=== PATIENT | female | born 1935 | race Caucasian/White ===

== ENCOUNTER → 2017-08-05 | Outpatient (CLI) | payer MEDICARE, BC ==
[~2017-08-05] MED LIST: ASPIRIN 325MG325 MG PO; BAYER GENUINE325 MG PO; BISOPROLOL 5MG T5 MG PO; CALCIUM + D 6001 TAB PO; COREG 6.25MG6.25 MG PO; DIOVAN160 MG PO; DIOVAN80 MG PO; ISOSORBIDE MONO30 MG PO; LIPITOR10 MG PO; METFORMIN 500M500 M1 PO; METFORMIN500 MG PO; METOPROLOL25 MG PO; MIRAPEX 0.120.125 MG PO; NEXIUM 24HR20 M1 PO; NITROGLYCE0.4 MG/SPR SL; PAXIL20 MG PO; PRAVACHOL 40MG40 MG PO; PRILOSEC OTC20 MG PO; PRILOSEC40 MG PO; ROSUVASTATIN CA40 MG PO; SPIRONOLACTONE25 MG NG
--- NOTE | 2017-08-05 15:46 | CARDIOVASCULAR REPORT ---
"Cerebrovascular Exam Indications: 785.9 Bruit. IMPRESSIONS 1. The bilateral vertebral arteries are patent with normal antegrade flow. 2. Study suggests 50-69% stenosis involving the right internal carotid artery and the left internal carotid artery. Carotid duplex study. Complete study and Doppler flow study including spectral analysis, color and gutierrez scale imaging. Height: Height: 162.6cm. Height: 64in. Weight: Weight: 75.8kg. Weight: 166.7lb. Body mass index: BMI: 28.7kg/m^2. Body surface area: BSA: 1.87m^2. Location: Vascular laboratory. Patient status: Outpatient. Tables: Arterial flow: + +--------+--------+ |Location |V sys |V ed | + +--------+--------+ |Right CCA - proximal|85.6cm/s|17.3cm/s| + +--------+--------+ |Right CCA - distal |71.1cm/s|16cm/s | + +--------+--------+ |Right ECA |341cm/s |--------| + +--------+--------+ |Right ICA - proximal|204cm/s |59.4cm/s| + +--------+--------+ |Right ICA - mid |161cm/s |49cm/s | + +--------+--------+ |Right ICA - distal |140cm/s |45.2cm/s| + +--------+--------+ |Right vertebral |72.2cm/s|--------| + +--------+--------+ |Left CCA - proximal |112cm/s |22cm/s | + +--------+--------+ |Left CCA - distal |108cm/s |22.8cm/s| + +--------+--------+ |Left ECA |71.7cm/s|--------| + +--------+--------+ |Left ICA - proximal |169cm/s |47.1cm/s| + +--------+--------+ |Left ICA - mid |132cm/s |25.3cm/s| + +--------+--------+ |Left ICA - distal |88.2cm/s|27.9cm/s| + +--------+--------+ |Left vertebral |102cm/s |--------| + +--------+--------+ Velocity ratios: + + + + + + | |Right, V sys|Right, V ed|Left, V sys|Left, V ed| + + + + + + |Max ICA/dist CCA|2.87 |3.71 |1.56 |2.07 | + + + + + + (Report amended ) Electronically signed by: Efraín Campos [id number]"
== END ==
LOC: RT 13:50
DX: I65.23 Occlusion and stenosis of bilateral carotid arteries (principal)